=== PATIENT | male | born 1960 | race Caucasian/White ===

== ENCOUNTER 2022-04-26 13:24 | Observation (INO) | payer OTHER ==
[2022-04-26] MEDS ORDERED: KETOROLAC TROMETHAMINE 15 MG/ML VIAL IVPUSH ONE (14:00)
[2022-04-26] MEDS ORDERED: ONDANSETRON 4 MG/2 ML VIAL IVPUSH ONE (14:01)
[2022-04-26] MEDS ORDERED: ONDANSETRON 4 MG/2 ML VIAL ONE (14:07)
[2022-04-26] MEDS ORDERED: KETOROLAC TROMETHAMINE 15 MG/ML VIAL ONE (14:07)
[2022-04-26 14:28] LABS: BASO % 0.7 % (0-2.0); EOS % 0.5 % (0-4.5); HEMATOCRIT 46.1 % (35.4-49); LYMPH % 8.9 % (8-40); MCH 29.1 pg (25.7-33.7); MCHC 32.4 g/dl (32.0-35.9); MEAN CELL VOLUME 89.7 fl (80-96); MEAN PLT VOLUME 9.8 fl (7.5-11.1); MONO % 9.6 % (3.8-10.2); NEUT % 80.3 % (42.8-82.8); PLATELET COUNT 172 10^3/uL (134-434); RBC 5.14 M/mm3 (4.00-5.60); RDW 13.7 % (11.9-15.9); WHITE BLOOD COUNT 11.9 K/mm3 (4.0-10.0)
[2022-04-26] MEDS ORDERED: SODIUM CHLORIDE 1,000 ML IV STA (14:33)
[2022-04-26 14:46] LABS: ALBUMIN 3.2 g/dl (3.4-5.0); BLOOD UREA NITROGEN 19.6 mg/dL (7-18); CALCIUM 8.7 mg/dL (8.5-10.1)
[2022-04-26 14:50] LABS: CREATININE 1.6 mg/dL (0.55-1.3)
[2022-04-26 14:51] LABS: BILIRUBIN,TOTAL 4.1 mg/dL (0.2-1); TOT PROT 6.6 g/dl (6.4-8.2)
[2022-04-26 15:46] LABS: EPI CELLS 2 /uL (0-25.1); HYALINE CASTS 1 /uL (0-3.1); URINE APPEARANCE CLEAR; URINE BACTERIA 3 /uL (0-1359); URINE BILIRUBIN NEGATIVE (NEGATIVE); URINE COLOR YELLOW; URINE GLUCOSE (UA) NEGATIVE (NEGATIVE); URINE KETONE TRACE (NEGATIVE); URINE LEUK ESTERASE TRACE (NEGATIVE); URINE NITRITE NEGATIVE (NEGATIVE); URINE PROTEIN 1+ (NEGATIVE); URINE UROBILINOGEN 0.2 mg/dL (0.2-1.0); URINE WBC 31 /uL (0-25.8)
[2022-04-26 16:03] LABS: YEAST NONE SEEN (NEGATIVE)
[2022-04-26] MEDS: SODIUM CHLORIDE 1,000 ML IV SCH (17:59)
[2022-04-26] MEDS ORDERED: TAMSULOSIN HCL 0.4 MG CAP PO ONE (19:03)
[2022-04-26] MEDS ORDERED: TAMSULOSIN HCL 0.4 MG CAP ONE (19:19)
[2022-04-27] MEDS ORDERED: ACETAMINOPHEN INJECTION 100 ML IVPB ONE (05:38)
[2022-04-27] MEDS: ACETAMINOPHEN 1000 MG/100 ML BAG IVPB PRN ×3 (06:00→23:23)
[2022-04-27 07:02] LABS: CALCIUM 8.1 mg/dL (8.5-10.1)
[2022-04-27 07:03] LABS: ALBUMIN 2.8 g/dl (3.4-5.0); BLOOD UREA NITROGEN 19.4 mg/dL (7-18)
[2022-04-27 07:07] LABS: CREATININE 1.6 mg/dL (0.55-1.3)
[2022-04-27 07:08] LABS: BILIRUBIN,TOTAL 3.7 mg/dL (0.2-1); TOT PROT 5.9 g/dl (6.4-8.2)
[2022-04-27] MEDS ORDERED: TAMSULOSIN HCL 0.4 MG CAP ONE ×2 (09:25→09:39)
[2022-04-27] MEDS: TAMSULOSIN HCL 0.4 MG CAP PO SCH (09:29)
[2022-04-27 09:32] VITALS: RESP 18
[2022-04-27] MEDS: SODIUM CHLORIDE 1,000 ML IV SCH ×2 (10:38→18:57)
[2022-04-27] MEDS: SERTRALINE HCL 50 MG TABLET (FP) PO SCH (15:28)
[2022-04-27 15:48] VITALS: BMI 24.7
[2022-04-27 19:33] LABS: ALBUMIN 2.8 g/dl (3.4-5.0)
[2022-04-27 19:37] LABS: BILIRUBIN,DIRECT 0.3 mg/dL (0.0-0.2); BILIRUBIN,TOTAL 3.9 mg/dL (0.2-1)
[2022-04-27 19:39] LABS: TOT PROT 5.9 g/dl (6.4-8.2)
[2022-04-28] MEDS: TAMSULOSIN HCL 0.4 MG CAP PO SCH (09:29)
[2022-04-28] MEDS: SERTRALINE HCL 50 MG TABLET (FP) PO SCH (09:29)
[2022-04-28 11:48] LABS: CALCIUM 8.1 mg/dL (8.5-10.1)
[2022-04-28 11:49] LABS: ALBUMIN 2.6 g/dl (3.4-5.0); BLOOD UREA NITROGEN 17.4 mg/dL (7-18)
[2022-04-28 11:53] LABS: CREATININE 1.4 mg/dL (0.55-1.3)
[2022-04-28 11:55] LABS: BILIRUBIN,TOTAL 2.7 mg/dL (0.2-1); TOT PROT 5.7 g/dl (6.4-8.2)
[2022-04-28 13:54] VITALS: BP 130/65; PULSE 62; TEMP 97.9
== END 2022-04-28 14:52 | disposition home or self-care (01) ==
LOC: JER 13:24 → JERBED 17:18 → J5S 04-27 10:06
PROVIDERS: ADMIT Internal Medicine; ATTEND Internal Medicine
PROC: 3E033NZ Introduction of Analgesics, Hypnotics, Sedatives into Peripheral Vein, Percutaneous Approach (ICD-10-PCS; principal; 2022-04-26)
PROC: 3E0333Z Introduction of Anti-inflammatory into Peripheral Vein, Percutaneous Approach (ICD-10-PCS; 2022-04-26)
PROC: 3E033GC Introduction of Other Therapeutic Substance into Peripheral Vein, Percutaneous Approach (ICD-10-PCS; 2022-04-26)
PROC: 3E0337Z Introduction of Electrolytic and Water Balance Substance into Peripheral Vein, Percutaneous Approach (ICD-10-PCS; 2022-04-26)
DX: N13.2 Hydronephrosis with renal and ureteral calculous obstruction (principal); N17.9 Acute kidney failure, unspecified; K80.20 Calculus of gallbladder without cholecystitis without obstruction; R17 Unspecified jaundice; Z86.73 Personal history of transient ischemic attack (TIA), and cerebral infarction without residual deficits
CPT/HCPCS: 36415; 71046-TC-FY; 74176-TC; 76775-TC; 76856-TC; 80048; 80053; 80076; 81003; 85025; 87086; 93005; 93010; 99285-25; C9803-CS; G0378; U0003; U0005